=== PATIENT | female | born 1995 | race Hispanic/Latino ===

== ENCOUNTER 2024-05-02 22:19 | Emergency (ER) | payer OTHER, SELFPAY ==
--- NOTE | 2024-05-02 23:16 | ER ---
Nurse's Notes [facility] Name: Mary Ellen Duggan Age: 29 yrs Sex: Female : 1995 Arrival Date: 05/02/2024 Time: 22:19 Bed IW10 Private MD: Diagnosis: Otitis media, unspecified, right ear Presentation: 05/02 22:40 Chief complaint: Patient states: headache, ear drainage. ha1 22:40 Method Of Arrival: Ambulatory ha1 22:40 Coronavirus screen: Vaccine status: Patient reports being unvaccinated. Ebola Screen: ha1 No symptoms or risks identified at this time. Initial Sepsis Screen: Does the patient meet any 2 criteria? No. Patient's initial sepsis screen is negative. Does the patient have a suspected source of infection? No. Patient's initial sepsis screen is negative. Risk Assessment: Do you want to hurt yourself or someone else? Patient reports no desire to harm self or others. Onset of symptoms was May 02, 2024. 22:40 Acuity: STEVE 4 ha1 Triage Assessment: 22:40 Headache History: The patient has had previous headaches and this one is similar to ha1 previous episodes. General: Appears comfortable, Behavior is calm, cooperative. Pain: Complains of pain in headache Pain does not radiate. Pain currently is 5 out of 10 on a pain scale. Quality of pain is described as aching, Pain began suddenly. EENT: Reports pain in right ear drainage of ear . Neuro: Level of Consciousness is awake, alert, obeys commands, Oriented to person, place, time, situation. Cardiovascular: Capillary refill < 3 seconds Patient's skin is warm and dry. Respiratory: Airway is patent Respiratory effort is even, unlabored, Respiratory pattern is regular, symmetrical. : No signs and/or symptoms were reported regarding the genitourinary system. Derm: No signs and/or symptoms reported regarding the dermatologic system. 05/03 00:36 Pain: Also complains of. ha1 Historical: - Allergies: 05/02 23:03 No Known Allergies; ha1 - PMHx: 23:03 Hypothyroidism; Diabetes mellitus; ha1 - Immunization history:: Adult Immunizations up to date. - Infectious Disease History:: Denies. - Social history:: Smoking status: Patient denies any tobacco usage or history of. Screenin:00 [facility] ED Fall Risk Assessment (Adult) History of falling in the last 3 months, ha1 including since admission No falls in past 3 months (0 pts) Confusion or Disorientation No (0 pts) Intoxicated or Sedated Impaired Gait No (0 pts) Mobility Assist Device Used No (0 pt) Altered Elimination No (0 pt) Score/Fall Risk Level 0 - 2 = Low Risk Oriented to surroundings, Maintained a safe environment, Educated pt \T\ family on fall prevention, incl call for assistance when getting out of bed, Hourly rounding (assess needs \T\ fall precautionary measures) done. Abuse screen: Denies threats or abuse. Denies injuries from another. Nutritional screening: No deficits noted. Tuberculosis screening: No symptoms or risk factors identified. Assessment: 23:00 Reassessment: Patient and/or family updated on plan of care and expected duration. Pain ha1 level reassessed. Patient is alert, oriented x 3, equal unlabored respirations, skin warm/dry/pink. Vital Signs: 22:40 BP 155 / 94; Pulse 83; Resp 17 S; Temp 98.7; Pulse Ox 100% on R/A; Weight 95.25 kg; ha1 Height 5 ft. 5 in. ; Pain 6/10; 22:40 Body Mass Index 34.95 (95.25 kg, 165.1 cm) ha1 22:40 Pain Scale: Adult ha1 ED Course: 22:23 Patient arrived in ED. im 22:28 Mario Redding PA is PHCP. cp 22:28 Gokul Jorge MD is Attending Physician. cp 22:48 Arm band placed on right wrist. ha1 22:48 Patient has correct armband on for positive identification. ha1 23:03 Triage completed. ha1 23:14 Helen Collier MD is Referral Physician. cp 23:20 No provider procedures requiring assistance completed. ha1 23:20 Patient did not have IV access during this emergency room visit. ha1 Administered Medications: 23:55 Drug: Amoxicillin-Clavulanate PO 875 mg PO once Route: PO; cg 05/03 00:00 Follow up: Response: No adverse reaction; Marked relief of symptoms ha1 05/02 23:55 Drug: Acetaminophen PO 1000 mg PO once Route: PO; cg 05/03 00:00 Follow up: Response: No adverse reaction ha1 Medication: 05/02 23:20 VIS not applicable for this client. ha1 Outcome: 23:15 Discharge ordered by . cp 23:20 Discharged to home ambulatory, with family, ha1 23:20 Condition: stable 23:20 Discharge instructions given to patient, family, Instructed on discharge instructions, follow up and referral plans. medication usage, Demonstrated understanding of instructions, follow-up care, medications, Prescriptions given X 2, 05/03 00:00 Patient left the ED. ha1 Signatures: Mario Redding PA PA cp Garcia, Cindy, RN RN Hillary Shell RN RN ha1 Shira Segundo Corrections: (The following items were deleted from the chart) 00:37 00:36 Patient left the ED. ha1 ha1
--- NOTE | 2024-05-02 23:16 | EDPHYS ---
Physician Documentation [facility] Name: Mary Ellen Duggan Age: 29 yrs Sex: Female : 1995 Arrival Date: 05/02/2024 Time: 22:19 Bed IW10 Private MD: ED Physician Gokul Jorge HPI: 05/02 23:15 This 29 yrs old Female presents to ER via Ambulatory with complaints of cp Drainage From Ear, Headache. 23:15 The patient presents with drainage, pain, that is acute. Associated signs and symptoms: cp Pertinent positives: headache, Pertinent negatives: fever, sinus trouble, sore throat, cough. Severity of symptoms: in the emergency department the symptoms are unchanged despite home interventions. Historical: - Allergies: 23:03 No Known Allergies; ha1 - PMHx: 23:03 Hypothyroidism; Diabetes mellitus; ha1 - Immunization history:: Adult Immunizations up to date. - Infectious Disease History:: Denies. - Social history:: Smoking status: Patient denies any tobacco usage or history of. ROS: 23:15 Constitutional: Negative for body aches, chills, fever, poor PO intake, cp 23:15 Eyes: Negative for injury, pain, redness, and discharge, cp 23:15 ENT: Positive for drainage from ear(s), ear pain, 23:15 Neuro: Positive for headache, 23:15 All other systems are negative, Exam: 23:15 Constitutional: The patient appears in no acute distress, alert, awake, non-toxic, well cp developed, well nourished, 23:15 Head/Face: Normocephalic, atraumatic. cp 23:15 Eyes: Periorbital structures: appear normal, Conjunctiva: normal, no exudate, no injection, Lids and lashes: appear normal, bilaterally, 23:15 ENT: External ear(s): are unremarkable, Ear canal(s): bleeding, clotted blood, that is minimal, in the right canal, erythema, that is minimal, of the right canal, strand of hair in ear canal near tympanic membrane, TM's: erythema, that is mild, on the right, Examination of the other ear shows no obvious abnormality, Mouth: Lips: moist, Posterior pharynx: Airway: no evidence of obstruction, patent, 23:15 Neck: Lymph nodes: no appreciated lymphadenopathy, 23:15 Chest/axilla: Inspection: normal, 23:15 Cardiovascular: Rate: normal, Rhythm: regular, 23:15 Respiratory: the patient does not display signs of respiratory distress, Respirations: normal, no use of accessory muscles, no retractions, labored breathing, is not present, 23:15 Skin: cellulitis, is not appreciated, no rash present. Vital Signs: 22:40 BP 155 / 94; Pulse 83; Resp 17 S; Temp 98.7; Pulse Ox 100% on R/A; Weight 95.25 kg; ha1 Height 5 ft. 5 in. ; Pain 6/10; 22:40 Body Mass Index 34.95 (95.25 kg, 165.1 cm) ha1 22:40 Pain Scale: Adult ha1 MDM: 22:55 Medical Screening Exam initiated cp 23:15 Data reviewed: vital signs, nurses notes, and as a result, I will discharge patient. cp 23:15 Differential diagnosis: otitis media, otitis externa, ruptured TM, foreign body, cp cerumen impaction, barotrauma . I considered the following discharge prescriptions or medication management in the emergency department Medications were administered in the Emergency Department. See MAR. Counseling: I had a detailed discussion with the patient and/or guardian regarding the historical points, exam findings, and any diagnostic results supporting the discharge/admit diagnosis, to return to the emergency department if symptoms worsen or persist or if there are any questions or concerns that arise at home. Administered Medications: 23:55 Drug: Amoxicillin-Clavulanate PO 875 mg PO once Route: PO; cg 05/03 00:00 Follow up: Response: No adverse reaction; Marked relief of symptoms 1 05/02 23:55 Drug: Acetaminophen PO 1000 mg PO once Route: PO; cg 05/03 00:00 Follow up: Response: No adverse reaction ha1 Disposition Summary: 05/02/24 23:15 Discharge Ordered Notes: Location: Home cp Problem: new cp Symptoms: have improved cp Condition: Stable cp Diagnosis - Otitis media, unspecified, right ear cp Followup: cp - With: Helen Collier MD - When: 5 - 6 days - Reason: Worsening of condition Discharge Instructions: - Discharge Summary Sheet cp - Ear Drops, Adult cp - Otitis Media, Adult cp Forms: - Medication Reconciliation Form cp - Antibiotic Education cp - Prescription Opioid Use cp - Patient Portal Instructions cp - Leadership Thank You Letter cp Prescriptions: - Amoxicillin 875 mg Oral Tablet - take 1 tablet ORAL route every 12 hours for 10 days; 20 tablet; Refills: 0, cp Product Selection Permitted - Cortisporin-TC 3.3-3-10-0.5 mg/mL Otic drops, suspension - instill 4 drops OTIC route every 6 hours; 1 unit; Refills: 0, Product Selection cp Permitted Signatures: Mario Redding PA PA cp Garcia, Cindy, RN RN Hillary Shell RN RN ha1
[2024-05-02] MEDS ORDERED: AMOX/K CLAV 875 MG TAB ONE (23:51)
[2024-05-02] MEDS ORDERED: ACETAMINOPHEN 500 MG TAB ONE (23:51)
[2024-05-03 10:49] VITALS: BP 155/94; TEMP 98.7; O2SAT 100
== END 2024-05-03 00:36 | disposition home or self-care (01) ==
LOC: ER 22:19
DX: H66.91 Otitis media, unspecified, right ear (principal)
CPT/HCPCS: 99283